=== PATIENT | male | born 1940 | race Caucasian/White ===

== ENCOUNTER 2018-04-25 11:10 | Emergency (ER) | payer OTHER, MEDICARE ==
--- NOTE | 2018-04-25 13:33 | EDM.PDOC ---
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 He lives alone and was found on the ground by his son. He has some bruises but denies any injuries. He does not recall his fall. Son states he has not been like this in the past but has had some memory deficit. Patient has a history of Prostate cancer with metastases and now currently only on Leupron injections. Patient per history is not his baseline and appears slightly delirious. Onset: Unknown/Unsure Duration: Day(s): Location: Reports: Generalized Mid-Sternal Chest Pain Score (Numeric/FACES): 3 Right Thoracic Pain Score (Numeric/FACES): 3 - Related Data Allergies Allergy/AdvReac Type Severity Reaction Status Date / Time No Known Allergies Allergy Verified 04/25/18 11:43 Home Meds: Home Meds Aspirin [Adult Low Dose Aspirin EC] 81 mg PO DAILY 04/25/18 [History] Cholecalciferol (Vitamin D3) [Vitamin D3] 1,000 unit PO DAILY 04/25/18 [History] Furosemide 40 mg PO DAILY 04/25/18 [History] Leuprolide Acetate [Eligard] 22.5 mg SQ ASDIRECTED 04/25/18 [History] Metoprolol Tartrate 100 mg PO BID 04/25/18 [History] Polyethylene Glycol 3350 [MiraLAX] 17 gm PO DAILY 04/25/18 [History] Sennosides/Docusate Sodium [Docusate Sodium-Senna Tablet] 2 each PO DAILY PRN [History] metFORMIN HCl [Metformin HCl] 1,000 mg PO BIDMEALS 04/25/18 [History] Past Medical History HEENT History: Reports: Impaired Vision Cardiovascular History: Reports: Hypertension Endocrine/Metabolic History: Reports: Diabetes, Type II Oncologic (Cancer) History: Reports: Prostate - Past Surgical History HEENT Surgical History: Reports: None ED ROS GENERAL - Review of Systems Review Of Systems: ROS reveals no pertinent complaints other than HPI. - Physical Exam Exam: See Below Exam Limited By: Altered Mental Status General Appearance: Alert Eye Exam: Bilateral Eye: EOMI, PERRL Ears: Normal External Exam Nose: Normal Inspection Throat/Mouth: Normal Inspection Head Exam: Atraumatic, Normocephalic Neck: Normal Inspection, Supple Respiratory/Chest: No Respiratory Distress, Lungs Clear, Normal Breath Sounds Cardiovascular: Normal Peripheral Pulses, Regular Rate, Rhythm GI/Abdominal: Normal Bowel Sounds Neuro Exam (Abbreviated): Confused, Disoriented, Memory Loss Recent Events Psychiatric: Normal Affect, Normal Mood Course - Vital Signs Last Recorded V/S: Last Vital Signs Temp 36.1 C 04/25/18 11:38 Pulse 77 04/25/18 14:05 Resp 18 04/25/18 14:05 BP 158/77 H 04/25/18 14:05 Pulse Ox 99 04/25/18 14:05 - Orders/Labs/Meds Orders: Active Orders 24 hr Category Date Time Status EKG Documentation Completion [RC] ASDIRECTED Care 04/25/18 11:56 Active Abdomen Pelvis wo Cont [CT] Stat Exams 04/25/18 13:36 Taken Head wo Cont [CT] Stat Exams 04/25/18 11:56 Taken Labs: Laboratory Tests 04/25/18 04/25/18 04/25/18 Range/Units 12:00 12:00 12:00 WBC 8.3 (4.0-11.0) K/uL RBC 3.23 L (4.50-6.50) M/uL Hgb 9.8 L D (13.0-18.0) g/dL Hct 28.5 L D (40.0-54.0) % MCV 88 (76-96) fL MCH 30.3 (27.0-32.0) pg MCHC 34.4 (31.0-35.0) g/dL RDW 12.6 (11.0-16.0) % Plt Count 215 (150-400) K/uL MPV 9.5 (6.0-10.0) fL Neut % (Auto) 67.8 (45.0-70.0) % Lymph % (Auto) 17.9 L (20.0-40.0) % [place] % (Auto) 8.9 (3.0-10.0) % Eos % (Auto) 4.2 (1.0-5.0) % Baso % (Auto) 1.2 H (0.0-0.5) % Neut # (Auto) 5.65 (2.00-7.50) K/uL Lymph # (Auto) 1.49 L (1.50-4.00) K/uL [place] # (Auto) 0.74 (0.20-0.80) K/uL Eos # (Auto) 0.35 (0.04-0.40) K/uL Baso # (Auto) 0.10 (0.02-0.10) K/uL Sodium 140 (136-145) mmol/L Potassium 3.7 (3.5-5.1) mmol/L Chloride 100 (98-107) mmol/L Carbon Dioxide 23.4 D (21.0-32.0) mmol/L Anion Gap 20.3 H (5.0-15.0) mmol/L BUN 87 H* D (8-26) mg/dL Creatinine 7.60 H* D (0.70-1.30) mg/dL Est Cr Clr Drug Dosing TNP Estimated GFR (MDRD) 7 L (>60) MLS/MIN BUN/Creatinine Ratio 11.4 (6-25) Glucose 118 H (74-100) mg/dL Calcium 8.8 (8.5-10.1) mg/dL Total Bilirubin 0.5 D (0.0-1.0) mg/dL AST 47 H (15-37) U/L ALT 23 (12-78) U/L Alkaline Phosphatase 68 (46-116) U/L Ammonia (11-32) umol/L Troponin I < 0.017 (0.000-0.060) ng/mL Total Protein 7.1 (6.4-8.2) g/dL Albumin 3.0 L (3.4-5.0) g/dL Globulin 4.1 (2.2-4.2) g/dL Albumin/Globulin Ratio 0.7 L (0.8-2.0) Urine Color Urine Appearance (CLEAR) Urine pH (5.0-8.0) Ur Specific [place] (1.003-1.030) Urine Protein (NEGATIVE) mg/dL Urine Glucose (UA) (NEGATIVE) mg/dL Urine Ketones (NEGATIVE) mg/dL Urine Occult Blood (NEGATIVE) Urine Nitrite (NEGATIVE) Urine Bilirubin (NEGATIVE) Urine Urobilinogen (0.2-1.0) E.U./dL Ur Leukocyte Esterase (NEGATIVE) Urine RBC /HPF Urine WBC /HPF Ur Squamous Epith Cells /HPF Amorphous Sediment /HPF Fine Granular Casts /HPF 04/25/18 04/25/18 Range/Units 12:39 13:17 WBC (4.0-11.0) K/uL RBC (4.50-6.50) M/uL Hgb (13.0-18.0) g/dL Hct (40.0-54.0) % MCV (76-96) fL MCH (27.0-32.0) pg MCHC (31.0-35.0) g/dL RDW (11.0-16.0) % Plt Count (150-400) K/uL MPV (6.0-10.0) fL Neut % (Auto) (45.0-70.0) % Lymph % (Auto) (20.0-40.0) % [place] % (Auto) (3.0-10.0) % Eos % (Auto) (1.0-5.0) % Baso % (Auto) (0.0-0.5) % Neut # (Auto) (2.00-7.50) K/uL Lymph # (Auto) (1.50-4.00) K/uL [place] # (Auto) (0.20-0.80) K/uL Eos # (Auto) (0.04-0.40) K/uL Baso # (Auto) (0.02-0.10) K/uL Sodium (136-145) mmol/L Potassium (3.5-5.1) mmol/L Chloride (98-107) mmol/L Carbon Dioxide (21.0-32.0) mmol/L Anion Gap (5.0-15.0) mmol/L BUN (8-26) mg/dL Creatinine (0.70-1.30) mg/dL Est Cr Clr Drug Dosing Estimated GFR (MDRD) (>60) MLS/MIN BUN/Creatinine Ratio (6-25) Glucose (74-100) mg/dL Calcium (8.5-10.1) mg/dL Total Bilirubin (0.0-1.0) mg/dL AST (15-37) U/L ALT (12-78) U/L Alkaline Phosphatase (46-116) U/L Ammonia 8 L (11-32) umol/L Troponin I (0.000-0.060) ng/mL Total Protein (6.4-8.2) g/dL Albumin (3.4-5.0) g/dL Globulin (2.2-4.2) g/dL Albumin/Globulin Ratio (0.8-2.0) Urine Color Yellow Urine Appearance Slightly cloudy (CLEAR) Urine pH 5.0 (5.0-8.0) Ur Specific [place] 1.020 (1.003-1.030) Urine Protein 30 H (NEGATIVE) mg/dL Urine Glucose (UA) Negative (NEGATIVE) mg/dL Urine Ketones Negative (NEGATIVE) mg/dL Urine Occult Blood Moderate H (NEGATIVE) Urine Nitrite Negative (NEGATIVE) Urine Bilirubin Negative (NEGATIVE) Urine Urobilinogen 0.2 (0.2-1.0) E.U./dL Ur Leukocyte Esterase Negative (NEGATIVE) Urine RBC 10-20 H /HPF Urine WBC Not seen /HPF Ur Squamous Epith Cells Few /HPF Amorphous Sediment Moderate /HPF Fine Granular Casts Few H /HPF Meds: Medications Discontinued Medications Generic Name Dose Route Start Last Admin Trade Name Freq PRN Reason Stop Dose Admin Sodium Chloride 1,000 mls @ 100 mls/hr 04/25/18 16:00 04/25/18 16:14 Normal Saline IV 100 mls/hr ASDIRECTED LUCILLE Administration Departure - Departure Time of Disposition: 15:00 Disposition: DC/[facility] Condition: Critical Clinical Impression: Hydroureter, Prostate cancer metastatic to multiple sites Acute renal failure (ARF) Qualifiers: Acute renal failure type: unspecified Qualified Code(s): N17.9 - Acute kidney failure, unspecified Hydronephrosis Qualifiers: Hydronephrosis type: unspecified Qualified Code(s): N13.30 - Unspecified hydronephrosis - Discharge Information Referrals: PCP,None [Primary Care Provider] - Forms: ED Department Discharge - Problem List & Annotations (1) Acute renal failure (ARF) SNOMED Code(s): 32882396 Code(s): N17.9 - ACUTE KIDNEY FAILURE, UNSPECIFIED Status: Acute Qualifiers: Acute renal failure type: unspecified Qualified Code(s): N17.9 - Acute kidney failure, unspecified (2) Hydronephrosis SNOMED Code(s): 00596353 Code(s): N13.30 - UNSPECIFIED HYDRONEPHROSIS Status: Acute Qualifiers: Hydronephrosis type: unspecified Qualified Code(s): N13.30 - Unspecified hydronephrosis (3) Hydroureter SNOMED Code(s): 90595942 Code(s): N13.4 - HYDROURETER Status: Acute (4) Prostate cancer metastatic to multiple sites SNOMED Code(s): 38038639, 80356038, 306115060 Code(s): C61 - MALIGNANT NEOPLASM OF PROSTATE Status: Acute - Problem List Review Problem List Initiated/Reviewed/Updated: Yes - My Orders Last 24 Hours: My Active Orders 04/25/18 11:56 EKG Documentation Completion [RC] ASDIRECTED Head wo Cont [CT] Stat 04/25/18 13:36 Abdomen Pelvis wo Cont [CT] Stat - Assessment/Plan Last 24 Hours: My Active Orders 04/25/18 11:56 EKG Documentation Completion [RC] ASDIRECTED Head wo Cont [CT] Stat 04/25/18 13:36 Abdomen Pelvis wo Cont [CT] Stat Plan: Consulted [facility] [place] and they have accepted his transfer. I did call [facility] initially and was setup with Dr. Seals and Dr. Garner but we waited for verification [facility] the [facility]. They decided that they would take the patient at [place]. [facility] contacted and informed. Patient will be transferred BLS to [facility]. Patient's son present and in agreement.
[2018-04-25] MEDS ORDERED: Sodium Chloride 0.9% 1,000 ML IV SCH (16:00)
--- NOTE | 2018-04-25 17:16 | CT ---
DATE OF SERVICE: 04/25/18 CLINICAL DATA: Confusion after fall UNENHANCED BRAIN CT: Multislice acquisition through the brain without IV contrast was performed. No priors. There is diffuse cerebral atrophy. There are extensive periventricular lucencies bilaterally consistent with small vessel ischemic change. There are lucencies in the basal ganglia bilaterally consistent with lacunar infarcts. No masses or mass effect. No intracranial hemorrhage. No evidence of acute or subacute infarct. IMPRESSION: No acute intracranial abnormalities. [id number] [facility]
--- NOTE | 2018-04-25 18:33 | CT ---
DATE OF SERVICE: 04/25/18 CLINICAL DATA: [facility] UNENHANCED ABDOMEN AND PELVIC CT: Multislice acquisition through the abdomen and pelvis without IV or oral contrast was performed. No priors. There are small pulmonary nodules noted in both lower lungs. The largest is within the left lower lobe and measures 6 mm. Metastatic disease is suspected. The liver is normal size. There are low density lesions scattered throughout the liver. Their margins are somewhat poorly defined. Hepatic metastatic disease is suspected. Gallbladder appears normal. The spleen appears normal. The pancreas appears normal. The right adrenal appears normal. The left adrenal is not well seen. There is extensive para-aortic retroperitoneal adenopathy. There is also adenopathy within the pelvis bilaterally, left greater than right. There is bilateral hydronephrosis most likely related to obstruction from the adenopathy. There is a mass noted within the pelvis posterior to the bladder on the left. It measures 4.7 cm in diameter. Again, metastatic disease is suspected. Lymphoma or other malignant processes should also be considered. No free air. No free fluid. No dilated loops of bowel. There are bilateral inguinal hernias containing fat. The bladder is partially fluid-filled. The bladder wall appears diffusely thickened. There is a questionable lytic destructive process involving the left pubic bone. Possibility of osseous metastatic disease should be considered. IMPRESSION: Grossly abnormal exam. Multiple findings as discussed above. [id number] [facility]
== END 2018-04-25 16:21 ==
LOC: LB.ED 11:10
DX: N17.9 Acute kidney failure, unspecified (principal); N13.30 Unspecified hydronephrosis; C61 Malignant neoplasm of prostate; C79.9 Secondary malignant neoplasm of unspecified site; M54.6 Pain in thoracic spine; E11.9 Type 2 diabetes mellitus without complications; I10 Essential (primary) hypertension; Z79.82 Long term (current) use of aspirin; Z79.84 Long term (current) use of oral hypoglycemic drugs; Z79.899 Other long term (current) drug therapy
CPT/HCPCS: 36415; 70450; 74176; 80053; 81001; 82140; 84484; 85025; 93005; 99285; A0425; A0429; J7030